=== PATIENT | female | born 1985 | race African-American/Black ===

== ENCOUNTER 2016-04-24 11:02 | Inpatient (IN) | payer OTHER ==
[~2016-04-24] VITALS: Ht 157.5 cm; Wt 85.3 kg
[2016-04-24] VITALS (13 sets, daily range): BP systolic 106–131; BP diastolic 52–103
--- NOTE | ~2016-04-24 | 2DMMODE ---
[facility] [place] [address] 2 D/M-MODE ECHOCARDIOGRAM Name: CLARISA BANSAL Room #: 247-P [facility] IN M.R.#: [id number] Admission: 04/24/16 Attend Phys: Indio Gaviria, Discharge: Date of : 83 Date of Service: 04/27/16 0807 Report #: [id number] THIS REPORT FOR: //name// Transthoracic Echocardiography Ordering physician: Indio Gaviria Referring physician: Indio Gaviria Bisque Kiln Placer: Diann Pride Indications/History: Pulmonary embolism, tachycardia. Hx: HTN, DM BP: 100 / HR: 81bpm Height: 62in Weight: 189.6lb 71 Study data: M-mode, complete 2D, complete spectral Doppler, and color Doppler. Location: Bedside. Routine. Image quality was adequate. 2D measurements Normal Normal LVID ED 39.7mm 36-57 IVS ED 9.9mm 6-11 LVID ES 28.3mm 23-40 LVPW ED 10.1mm 6-11 LA volume 11ml/m2 16-28 AoRoot diam 29.3mm 21-37 index ED LVOT diameter 20mm 18-23 Findings: Left ventricle: The cavity size was normal. Wall thickness was normal. Systolic function was normal. The estimated ejection fraction was in the range of 50% to 55%. Wall motion was normal. Right ventricle: The cavity size was normal. Systolic function was normal. Right atrium: The atrium was normal in size. Left atrium: The atrium was normal in size. Volume index: 11ml/m2 (S). Aortic valve: Structurally normal valve. Doppler: There was no stenosis. No regurgitation. Peak velocity: 105.7cm/s (S). [facility] [address] [place] [address] 2 D/M-MODE ECHOCARDIOGRAM Name: CLARISA BANSAL Room #: 247-P [facility] IN M.R.#: [id number] Admission: 04/24/16 Attend Phys: Indio Gaviria, Discharge: Date of : 83 Date of Service: 04/27/16 0807 Report #: [id number] Mitral valve: Structurally normal valve. Doppler: There was no evidence for stenosis. Trivial regurgitation. Peak E-wave velocity: 85.8cm/s. Peak gradient: 2.9mm Hg (D). Peak A-wave velocity: 52.2cm/s. Tricuspid valve: Structurally normal valve. Doppler: There was no evidence for stenosis. Mild regurgitation. Regurgitant peak velocity: 265.2cm/s. Peak RV-RA gradient: 28mm Hg (S). Pulmonic valve: Structurally normal valve. Doppler: There was no evidence for stenosis. Trivial regurgitation. Pericardium: There was no pericardial effusion. Aorta: Aortic root: The aortic root was normal in size. Pulmonary artery: Systolic pressure was estimated to be 38mm Hg. Diastolic function: Normal diastolic function. Systemic veins: Inferior vena cava: The vessel was mildly dilated; the respirophasic diameter changes were blunted (< 50%). Conclusions 1. Left ventricle: The cavity size was normal. Wall thickness was normal. Systolic function was normal. The estimated ejection fraction was in the range of 50% to 55%. 2. Right ventricle: The cavity size was normal. 3. Left atrium: The atrium was normal in size. 4. Aortic valve: Structurally normal valve. There was no stenosis. 5. Mitral valve: Structurally normal valve. Trivial regurgitation. 6. Tricuspid valve: Structurally normal valve. Mild regurgitation. 7. Pericardium, extracardiac: There was no pericardial effusion. <ELECTRONICALLY SIGNED> By: Luis Roth MD 04/27/16908 6 8 Luis Roth MD /eloisa
--- NOTE | ~2016-04-24 | HC ---
[facility] [place] [address] CONSULTATION Name: CLARISA BANSAL Room #: 439-P ADM IN M.R.#: [id number] Admission: 04/24/16 Attend Phys: Indio Gaviria DO Discharge: Date of : 83 Report #: [id number] THIS REPORT FOR: //name// CC: FAM physician/PCP Indio Gaviria REFERRING PHYSICIAN: Indio Gaviria DO. REASON FOR CONSULTATION: To make recommendations on management of saddle pulmonary embolus. HISTORY OF PRESENT ILLNESS: The patient is a 31-year-old female with a history of diabetes who is currently being treated for diabetes, was at her friend's place and blacked out that prompted the evaluation at the hospital. The patient denies any prior symptoms of shortness of breath or chest discomfort, but just before she blacked out, she reports having had a chest discomfort. She is currently not taking any oral contraceptives and is not a smoker. The patient's mother has had a history of clot with no other details available. PAST MEDICAL HISTORY: 1. High blood pressure. 2. Diabetes. SOCIAL HISTORY: Denies smoking or regular use of alcohol. FAMILY HISTORY: Mother with a history of clotting history. REVIEW OF SYSTEMS: CONSTITUTIONAL: Negative. HEENT: Negative. CARDIOVASCULAR: Negative. RESPIRATORY: Positive for shortness of breath. GASTROINTESTINAL: Negative. GENITOURINARY: Negative. MUSCULOSKELETAL: Negative. NEUROLOGY: Negative. ECOG performance status 1. PHYSICAL EXAMINATION: VITAL SIGNS: Temperature 36.6, pulse 87 per minute, respirations 19 per minute, blood pressure 123/86. GENERAL: Alert, awake, oriented x 3. LUNGS: Clear to auscultation bilaterally. HEART: S1, S2. No murmurs, rubs or gallops. ABDOMEN: Soft with positive bowel sounds. EXTREMITIES: No cyanosis, clubbing or edema. LABORATORY DATA: CBC within normal range. Chemistry with elevated sugars. [facility] [address] [place] [address] CONSULTATION Name: CLARISA BANSAL Room #: 439-P [facility] IN [facility].#: [id number] Admission: 04/24/16 Attend Phys: Indio Gaviria DO Discharge: Date of : 83 Report #: [id number] RADIOLOGY: CT of the chest has indicated a saddle pulmonary embolus. Ultrasound of bilateral lower extremities is negative for deep venous thrombosis. ASSESSMENT AND PLAN: A 31-year-old female with a history of diabetes and currently actively being treated for that, is admitted and noted to have a saddle pulmonary embolus. The patient does not have a significant underlying predisposing factors for a clot. She just drove back from [place] to be closer to home, not on any oral contraceptives with estrogen and is not a current smoker. At current time with spontaneous pulmonary embolus, I am worried about a possible underlying hypercoagulable state and the patient does need hypercoagulable testing at a later time. Agree with continuing heparin as she is receiving currently close monitoring of her clinical status in intensive care at this point. Once she is stable enough, we can discuss the newer anticoagulants available for ongoing therapy. Based on the hypercoagulability testing, we will determine the duration of anticoagulation, I believe she needs 1 year of anticoagulation. Same was reviewed with the patient in presence of her [id number]. Thank you for the opportunity to participate in her care. We will be available to make further recommendations. <ELECTRONICALLY SIGNED> By: Rubio Gale MD 04/30/16 0718 [id number] [id number] Tri Hicks MD /nt
--- NOTE | ~2016-04-24 | EKG ---
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
[~2016-04-24 11:02] MED LIST: ZOFRAN ODT4 MG PO
[2016-04-24] MEDS ORDERED: METFORMIN HCL500 MG PO (11:06)
[2016-04-24 11:25] LABS: ABSOLUTE NEUTROPHILS 5.6 thou/uL (1.4-8.2); BASOPHILS 0.6 % (0.0-2.0); EOSINOPHILS 0.8 % (0.0-3.0); HEMATOCRIT 41.4 % (37.0-47.0); HEMOGLOBIN 13.7 gm/dL (12.0-15.0); LYMPHOCYTES 35.3 % (24.0-44.0); MCH 29.4 pg (26.0-34.0); MCHC 33.1 % (28.0-37.0); MCV 88.9 fL (80.0-100.0); MONOCYTES 4.9 % (1.0-8.0); PLATELET COUNT 160 thou/uL (150-400); POLYS 58.4 % (36.0-66.0); RBC 4.66 mil/uL (4.20-5.00); RDW 13.7 % (10.5-14.5); WBC 10.5 thou/uL (4.0-11.0)
[2016-04-24 11:27] LABS: MANUAL DIFF NO
[2016-04-24 11:35] LABS: ANION GAP 14 mmol/L (7-16); BUN 7 mg/dL (7-18); CHLORIDE 99 mmol/L (98-107); CO2 22 mmol/L (21-32); GLUCOSE 500 mg/dL (70-99); POTASSIUM 3.9 mmol/L (3.5-5.1); SODIUM 135 mmol/L (136-145)
[2016-04-24 11:43] LABS: TROPONIN-I < 0.04 ng/mL (<0.04-0.07)
[2016-04-24 13:10] LABS: APTT 22.6 Seconds (24.5-32.8)
[2016-04-24 19:08] LABS: TSH 3.28 uIU/mL (0.450-4.500)
[2016-04-25] VITALS (21 sets, daily range): BP systolic 99–140; BP diastolic 73–102
[2016-04-25 11:10] LABS: ABSOLUTE NEUTROPHILS 2.9 thou/uL (1.4-8.2); BASOPHILS 0.6 % (0.0-2.0); EOSINOPHILS 0.3 % (0.0-3.0); HEMATOCRIT 38.9 % (37.0-47.0); HEMOGLOBIN 12.7 gm/dL (12.0-15.0); LYMPHOCYTES 48.7 % (24.0-44.0); MCH 28.9 pg (26.0-34.0); MCHC 32.7 % (28.0-37.0); MCV 88.3 fL (80.0-100.0); MONOCYTES 6.3 % (1.0-8.0); PLATELET COUNT 172 thou/uL (150-400); POLYS 44.1 % (36.0-66.0); RBC 4.41 mil/uL (4.20-5.00); RDW 14.1 % (10.5-14.5); WBC 6.5 thou/uL (4.0-11.0)
[2016-04-25 11:11] LABS: MANUAL DIFF NO
[2016-04-25 11:22] LABS: CALCIUM 8.4 mg/dL (8.5-10.1); CREATININE 0.8 mg/dL (0.6-1.3); POTASSIUM 3.7 mmol/L (3.5-5.1)
[2016-04-25 12:27] LABS: INR 1.1; PROTIME 11.2 Seconds (9.3-11.4)
[2016-04-26] VITALS (24 sets, daily range): BP systolic 109–157; BP diastolic 73–98
[2016-04-26 03:13] LABS: INR 1.1
[2016-04-26 04:26] LABS: APTT 63.2 Seconds (24.5-32.8)
[2016-04-26 07:10] LABS: GLYCOHEMOGLOBIN (HGB A1C) 12.8 % (4.8-5.6)
[2016-04-27] VITALS (25 sets, daily range): BP systolic 97–135; BP diastolic 59–92
[2016-04-27 04:33] LABS: APTT 56.1 Seconds (24.5-32.8); INR 1.1; PROTIME 11.1 Seconds (9.3-11.4)
[2016-04-28] VITALS (19 sets, daily range): BP systolic 95–143; BP diastolic 58–93
[2016-04-28 04:39] LABS: INR 1.1
[2016-04-28 08:33] LABS: HEMATOCRIT 34.8 % (37.0-47.0); HEMOGLOBIN 11.5 gm/dL (12.0-15.0); MCH 29.4 pg (26.0-34.0); MCV 89.1 fL (80.0-100.0); RBC 3.91 mil/uL (4.20-5.00); RDW 13.9 % (10.5-14.5); WBC 5.5 thou/uL (4.0-11.0)
[2016-04-29 03:25] VITALS: BP 136/94
[2016-04-29 06:58] LABS: ABSOLUTE NEUTROPHILS 3.8 thou/uL (1.4-8.2); BASOPHILS 0.6 % (0.0-2.0); EOSINOPHILS 1.3 % (0.0-3.0); HEMATOCRIT 36.6 % (37.0-47.0); HEMOGLOBIN 12.1 gm/dL (12.0-15.0); LYMPHOCYTES 31.2 % (24.0-44.0); MCV 87.8 fL (80.0-100.0); MONOCYTES 6.5 % (1.0-8.0); PLATELET COUNT 190 thou/uL (150-400); POLYS 60.4 % (36.0-66.0); RBC 4.16 mil/uL (4.20-5.00); WBC 6.4 thou/uL (4.0-11.0)
[2016-04-29 07:05] LABS: CALCIUM 8.7 mg/dL (8.5-10.1); CREATININE 0.6 mg/dL (0.6-1.3); POTASSIUM 3.6 mmol/L (3.5-5.1)
[2016-04-29 07:13] LABS: APTT 57.2 Seconds (24.5-32.8); INR 1.1; PROTIME 11.2 Seconds (9.3-11.4)
[2016-04-29 07:14] LABS: MANUAL DIFF NO
[2016-04-29 08:00] VITALS: BP 131/89
[2016-04-29 11:57] VITALS: BP 132/74
[2016-04-29 16:00] VITALS: BP 140/90
[2016-04-29 19:55] VITALS: BP 133/93
[2016-04-30 04:39] VITALS: BP 122/82
[2016-04-30 05:47] LABS: HEMATOCRIT 35.6 % (37.0-47.0); HEMOGLOBIN 11.8 gm/dL (12.0-15.0); MCH 29.3 pg (26.0-34.0); MCV 88.8 fL (80.0-100.0); PLATELET COUNT 193 thou/uL (150-400); RBC 4.01 mil/uL (4.20-5.00); RDW 14.2 % (10.5-14.5); WBC 6.4 thou/uL (4.0-11.0)
[2016-04-30 05:48] LABS: MANUAL DIFF YES
[2016-04-30 05:58] LABS: PROTIME 10.6 Seconds (9.3-11.4)
[2016-04-30 06:02] LABS: CALCIUM 8.5 mg/dL (8.5-10.1); CREATININE 0.7 mg/dL (0.6-1.3); POTASSIUM 3.7 mmol/L (3.5-5.1)
[2016-04-30 07:43] LABS: ABSOLUTE NEUTROPHILS 3.5 thou/uL (1.4-8.2); TOTAL CELL COUNT 100
[2016-04-30 08:34] VITALS: BP 129/78
[2016-04-30 12:18] VITALS: BP 126/88
[2016-04-30 16:20] VITALS: BP 127/90
[2016-04-30 20:11] VITALS: BP 118/81
[2016-05-01 05:29] VITALS: BP 100/63
[2016-05-01 06:01] LABS: ABSOLUTE NEUTROPHILS 3.3 thou/uL (1.4-8.2); BASOPHILS 0.7 % (0.0-2.0); EOSINOPHILS 1.6 % (0.0-3.0); HEMATOCRIT 37.2 % (37.0-47.0); HEMOGLOBIN 12.1 gm/dL (12.0-15.0); LYMPHOCYTES 31.9 % (24.0-44.0); MCHC 32.5 % (28.0-37.0); MCV 89.4 fL (80.0-100.0); PLATELET COUNT 202 thou/uL (150-400); POLYS 57.8 % (36.0-66.0); RBC 4.16 mil/uL (4.20-5.00); RDW 13.9 % (10.5-14.5); WBC 5.7 thou/uL (4.0-11.0)
[2016-05-01 06:03] LABS: MANUAL DIFF NO
[2016-05-01 06:14] LABS: INR 1.1; PROTIME 11.5 Seconds (9.3-11.4)
[2016-05-01 06:22] LABS: CALCIUM 8.9 mg/dL (8.5-10.1); CREATININE 0.7 mg/dL (0.6-1.3); POTASSIUM 4.3 mmol/L (3.5-5.1)
[2016-05-01 08:00] VITALS: BP 121/84
[2016-05-01 12:00] VITALS: BP 125/82
[2016-05-01 16:00] VITALS: BP 139/86
[2016-05-01 19:55] VITALS: BP 123/84
[2016-05-02 05:55] VITALS: BP 97/70
[2016-05-02 06:17] LABS: ABSOLUTE NEUTROPHILS 3.6 thou/uL (1.4-8.2); BASOPHILS 0.6 % (0.0-2.0); EOSINOPHILS 1.6 % (0.0-3.0); HEMATOCRIT 37.2 % (37.0-47.0); HEMOGLOBIN 12.1 gm/dL (12.0-15.0); LYMPHOCYTES 30.6 % (24.0-44.0); MCH 28.6 pg (26.0-34.0); MCHC 32.5 % (28.0-37.0); MCV 88.2 fL (80.0-100.0); MONOCYTES 7.8 % (1.0-8.0); PLATELET COUNT 217 thou/uL (150-400); POLYS 59.4 % (36.0-66.0); RBC 4.21 mil/uL (4.20-5.00); RDW 14.7 % (10.5-14.5)
[2016-05-02 06:25] LABS: MANUAL DIFF NO
[2016-05-02 06:31] LABS: CALCIUM 9.1 mg/dL (8.5-10.1); CREATININE 0.8 mg/dL (0.6-1.3); POTASSIUM 4.5 mmol/L (3.5-5.1)
[2016-05-02 08:00] VITALS: BP 125/78
[2016-05-02 12:00] VITALS: BP 135/91
[2016-05-02 16:00] VITALS: BP 154/67
[2016-05-02 19:36] VITALS: BP 145/89
[2016-05-03 03:21] VITALS: BP 112/59
[2016-05-03] MEDS ORDERED: ELIQUIS5 MG PO (11:48)
[2016-05-03] MEDS ORDERED: TRADJENTA5 MG PO (11:53)
[2016-05-03] MEDS ORDERED: LANTUSSOLASTAR SUBQ (11:53)
[2016-05-03 12:00] VITALS: BP 144/86
[2016-05-03 12:09] VITALS: BP 112/59
[2016-05-06 05:11] LABS: ANTITHROMBIN III 84 % (75-135)
== END 2016-05-03 14:35 | disposition home or self-care (01) | DRG 176 ==
LOC: ER 11:02 → ICU 13:17 → EROBS 13:17 → ICU 15:35 → 4S 04-28 12:56
PROVIDERS: Emergency Medicine; Family Medicine; Hospitalist; Internal Medicine; Internal Medicine Endocrinology, Diabetes & Metabolism; Internal Medicine Hematology & Oncology; Internal Medicine Pulmonary Disease
DX: I26.99 Other pulmonary embolism without acute cor pulmonale (principal); E11.9 Type 2 diabetes mellitus without complications; Z79.4 Long term (current) use of insulin; I10 Essential (primary) hypertension; Z79.01 Long term (current) use of anticoagulants
CPT/HCPCS: 10078; 10100